=== PATIENT | male | born 1965 | race Caucasian/White ===

== ENCOUNTER 2023-09-29 12:19 | Observation (INO) ==
[2023-09-29] MEDS ORDERED: SODIUM CHLORIDE 0.9% 1,000 ML IV STA (13:10)
--- NOTE | 2023-09-29 13:13 | Emergency Department Note ---
Impression & Plan Amaurosis fugax of right eye, Peripheral artery disease, Right carotid artery occlusion ED Provider Note NAME: ÁNGEL DICKEY AGE: 58 SEX: M ARRIVES VIA: Walk-In INFORMANT: Patient ED PROVIDER(S): Yinka Betancourt MD CHIEF COMPLAINT: Intermittent vision changes, referred PLAN: Disposition: Admit MEDICAL DECISION MAKING: The patient is a pleasant 58-year-old gentleman with a past medical history of occlusive peripheral arterial disease per his description with history of left lower extremity bypass, hypertension, hyperlipidemia who presents to the emergency department via walk-in accompanied by family for evaluation of intermittent vision loss and blurring over the past week in his right eye where he reports having episodes of complete loss of vision interspersed with episodes of severe blurred vision which will last several hours and then go away. He reports he has had intermittent headaches during this past week as well but do not necessarily correlate when his vision complaints are occurring. He reports he was seen by his primary care doctor yesterday who urged him to come to the hospital and so he presents for evaluation today. The patient is not on anticoagulation but is on 650 mg of aspirin daily and 100 mg of Cilostazol. The patient denies any chest pain, back pain, shortness of breath. Denies any dizziness. He denies any trouble speaking, difficulty with coordination or extremity weakness. The patient does admit to drinking alcohol daily but reports this is only 1-2 drinks of [place] and never more than this and he has recently gone over week without drinking alcohol and did not have any symptoms of withdrawal. On my evaluation the patient is no acute distress, afebrile stable vital signs. He appears clinically dry. At this time he has no vision complaints and otherwise does not exhibit any focal deficits. EKG without overt acute ischemia. Chest x-ray negative for acute cardiopulmonary process per my preliminary interpretation WBC, H/H and platelets within normal limits. Chemistry without metabolic acidosis. Electrolytes LFTs unremarkable. High-sensitivity troponin 4.0, within normal limits. Lipase is not elevated. TSH within limits of medical alcohol was undetectable. CT of the head demonstrates a 7 mm hypodense focus within the right basal ganglia/internal capsule which may reflect prominent prevascular space or old infarct. Additional note and CT angiography demonstrates complete thrombosis of the right ICA which extends from the bifurcation to the skull base where note is made of faint reconstitution of flow within the supraclinoid and ophthalmic segments of the right ICA due to retrograde flow from the [place] of [place]. The right ophthalmic artery appears perfused. Findings reviewed with the patient and family at the bedside. He does agree with plan for admission for further management. Case was d/w Dr. [facility] [place] who will evaluate the patient for admission. Triage Nursing notes reviewed and agree them. Prior/external medical records reviewed Vital Signs: reviewed Differential diagnosis: Infection, dehydration, metabolic abnormality, hypo/hyperglycemia, electrolyte disturbance, anemia, hypoxia, cardiac sources, intracerebral event, toxicologic, neurologic, as well as other pathologies. ER treatment provided: See below. Diagnostics interpreted by me: ECG: Normal sinus rhythm, 67 bpm, no ectopy, suspect early repolarization, no overt conacave down ST elevation or depression, QTc 429, QRS 86 Cardiac Monitoring: An order for continuous cardiac monitoring was placed and demonstrated Normal sinus rhythm, 67 bpm, no ectopy. Laboratory studies: See below Imaging studies: See below Consultation(s): Case was d/w Dr. [facility] [place] who will evaluate the patient for admission. HPI: The patient is a pleasant 58-year-old gentleman with a past medical history of occlusive peripheral arterial disease per his description with history of left lower extremity bypass, hypertension, hyperlipidemia who presents to the emergency department via walk-in accompanied by family for evaluation of intermittent vision loss and blurring over the past week in his right eye where he reports having episodes of complete loss of vision interspersed with episodes of severe blurred vision which will last several hours and then go away. He reports he has had intermittent headaches during this past week as well but do not necessarily correlate when his vision complaints are occurring. He reports he was seen by his primary care doctor yesterday who urged him to come to the hospital and so he presents for evaluation today. The patient is not on anticoagulation but is on 650 mg of aspirin daily and 100 mg of Cilostazol. The patient denies any chest pain, back pain, shortness of breath. Denies any dizziness. He denies any trouble speaking, difficulty with coordination or extremity weakness. The patient does admit to drinking alcohol daily but reports this is only 1-2 drinks of [place] and never more than this and he has recently gone over week without drinking alcohol and did not have any symptoms of withdrawal. ROS: See above HPI for pertinent positives & negatives. A total of 10 systems reviewed and were otherwise negative. VITALS:See Below PHYSICAL EXAMINATION: GENERAL: Awake, alert, well-appearing, in no distress HENT: Normocephalic, atraumatic. Oropharynx with dry mucous membranes and otherwise unremarkable. EYES: Normal conjunctiva. Sclera non-icteric. EOMI. No nystamgus. PEARRL. NECK: Supple. No nuchal rigidity. FROM. No JVD. RESPIRATORY: Clear to auscultation. CARDIAC: Regular rate, normal rhythm. Extremities warm and well perfused. Pulses equal. ABDOMEN: Soft, non-distended. No tenderness to palpation. No rebound or guarding. No masses. RECTAL: Deferred. MUSCULOSKELETAL: Chest examination reveals no tenderness. The back is symmetrical on inspection without obvious abnormality. There is no CVA tenderness to palpation. No joint edema. LOWER EXTREMITIES: Calves are equal size bilaterally and non-tender. No edema. No discoloration. NEURO: No focal sensory or motor deficits noted. CNII-XII grossly intact. 5/5 strength and SILT x 4 extremities. Cerebellar function intact including [id number], alternating palms, [id number]. SKIN: No rash or jaundice noted. Yinka Betancourt MD Past Med/Surg History Medical History Compartment syndrome of left lower extremity History of diverticulitis with abscess - August 2023 Peripheral artery disease b/l leg artery hooked up to aorta Surgical History History of arthroscopy of knee Social History Smoking Status: Current every day smoker Preferred Language: Icelandic Feels Safe at Home: Yes Allergies Allergies Allergy/AdvReac Type Severity Reaction Status Date / Time No Known Allergies Allergy Unverified 09/29/23 15:45 Home Meds Home Medications Medication Instructions Recorded Confirmed acetaminophen 500 mg tablet 500 mg PO Q6H PRN pain/fever 09/29/23 09/29/23 aspirin 325 mg tablet 650 mg PO DAILY 09/29/23 09/29/23 atorvastatin 40 mg tablet 40 mg PO DAILY 09/29/23 09/29/23 cilostazol 100 mg tablet 100 mg PO BID 09/29/23 09/29/23 gabapentin 100 mg capsule 100 mg PO TID 09/29/23 09/29/23 metoprolol succinate 50 mg 50 mg PO DAILY 09/29/23 09/29/23 tablet,extended release 24 hr nitroglycerin 0.3 mg sublingual 0.3 mg sublingual UD PRN Chest Pain 09/29/23 09/29/23 tablet Results & Data (ED) Vital Signs Vital Signs - 24 hr 09/29/23 12:23 09/29/23 12:38 09/29/23 12:39 Temperature 36.3 C L Temperature Source Temporal Artery Scan Pulse Rate 78 68 68 Pulse Rate from SpO2 Sensor 68 Respiratory Rate 20 12 Blood Pressure 121/81 138/78 Blood Pressure Mean 94 98 Pulse Oximetry 99 98 Oxygen Delivery Method Room Air Sepsis Recent Fever Within 48 Hours No Sepsis New/Unexplained Change in Mental Status N/A Sepsis Action Taken by Nursing No Action Required 09/29/23 13:00 09/29/23 13:10 09/29/23 13:30 Temperature Temperature Source Pulse Rate 66 67 Pulse Rate from SpO2 Sensor 67 66 Respiratory Rate 12 15 Blood Pressure Blood Pressure Mean Pulse Oximetry 100 98 100 Oxygen Delivery Method Room Air Sepsis Recent Fever Within 48 Hours Sepsis New/Unexplained Change in Mental Status Sepsis Action Taken by Nursing 09/29/23 14:00 09/29/23 14:30 09/29/23 15:07 Temperature Temperature Source Pulse Rate 64 59 L 62 Pulse Rate from SpO2 Sensor Respiratory Rate 14 22 14 Blood Pressure Blood Pressure Mean Pulse Oximetry Oxygen Delivery Method Sepsis Recent Fever Within 48 Hours Sepsis New/Unexplained Change in Mental Status Sepsis Action Taken by Nursing 09/29/23 15:30 09/29/23 16:00 09/29/23 16:03 Temperature Temperature Source Pulse Rate 63 59 L 61 Pulse Rate from SpO2 Sensor Respiratory Rate 16 23 16 Blood Pressure Blood Pressure Mean Pulse Oximetry Oxygen Delivery Method Sepsis Recent Fever Within 48 Hours Sepsis New/Unexplained Change in Mental Status Sepsis Action Taken by Nursing 09/29/23 16:11 09/29/23 16:24 09/29/23 16:30 Temperature Temperature Source Pulse Rate 54 L 56 L Pulse Rate from SpO2 Sensor Respiratory Rate 12 Blood Pressure 152/79 H Blood Pressure Mean 109 Pulse Oximetry Oxygen Delivery Method Sepsis Recent Fever Within 48 Hours Sepsis New/Unexplained Change in Mental Status Sepsis Action Taken by Nursing 09/29/23 17:00 09/29/23 17:30 Temperature Temperature Source Pulse Rate 59 L 56 L Pulse Rate from SpO2 Sensor Respiratory Rate 20 15 Blood Pressure Blood Pressure Mean Pulse Oximetry Oxygen Delivery Method Sepsis Recent Fever Within 48 Hours Sepsis New/Unexplained Change in Mental Status Sepsis Action Taken by Nursing Laboratory Data Attestation: I reviewed the patient's lab results. 09/29/23 12:45 09/29/23 12:45 Lab Results 09/29/23 09/29/23 Range/Units 12:45 14:40 WBC 8.66 (4.8-10.8) K/ul RBC 4.59 L (4.70-6.10) M/uL Hgb 14.4 (14.0-18.0) g/dl Hct 43.6 (42.0-52.0) % MCV 95.0 (80.0-100.0) fL MCH 31.4 (25.0-34.0) pg MCHC 33.0 (32.0-36.0) g/dL RDW Std Deviation 47.6 H (36.4-46.3) fL RDW Coeff of Adonis 13.5 (11.5-14.5) % Plt Count 228 (130-400) K/uL MPV 10.2 (9.4-12.4) fL Immature Gran % (Auto) 0.3 % Neut % (Auto) 75.3 % Lymph % (Auto) 16.9 % [place] % (Auto) 6.5 % Eos % (Auto) 0.7 % Baso % (Auto) 0.3 % Neut # (Auto) 6.52 H (1.40-6.50) K/uL Lymph # (Auto) 1.46 (1.20-3.40) K/uL [place] # (Auto) 0.56 (0.11-0.59) K/uL Eos # (Auto) 0.06 (0.00-0.50) K/uL Baso # (Auto) 0.03 (0.00-0.20) K/uL Immature Gran # (Auto) 0.03 (0.01-0.20) K/uL ESR 46 H (0-20) mm/hr Sodium 140 (136-145) mmol/L Potassium 4.0 (3.5-5.1) mmol/L Chloride 107 (98-107) mmol/L Carbon Dioxide 28 (21-32) mmol/L Anion Gap 5 (3-11) BUN 15 (6-23) mg/dl Creatinine 0.87 (0.6-1.4) mg/dl Est Cr Clr Drug Dosing 93.2 ml/min Est GFR ( Amer) 108.7 ml/min Est GFR (Non-Af Amer) 93.8 ml/min BUN/Creatinine Ratio 17.2 (10-20) Glucose 91 (70-99(Fasting)) mg/dl Calcium 9.5 (8.6-10.3) mg/dl Phosphorus 2.5 (2.5-4.9) mg/dl Magnesium 2.1 (1.7-2.4) mg/dl Total Bilirubin 0.5 (0.2-1.0) mg/dl AST 13 (13-39) U/L ALT 7 (7-52) U/L Alkaline Phosphatase 81 (34-104) U/L Troponin I High Sens 4.0 (0-20) pg/ml C-Reactive Protein 6.50 H (0-0.5) mg/dl Total Protein 7.4 (6.0-8.3) gm/dl Albumin 4.1 (3.4-5.0) gm/dl Globulin 3.3 (2.5-4.0) gm/dl Albumin/Globulin Ratio 1.2 (0.9-2) Lipase 17 (11-82) U/L TSH 2.742 (0.300-4.500) uIu/ml Ethyl Alcohol mg/dL < 10.0 (<10.0) mg/dl Administered Medications Discontinued Medications Sodium Chloride (Nss) 1,000 mls @ 999 mls/hr IV .Q1H1M STA Stop: 09/29/23 14:10 Last Infusion: 09/29/23 14:42 Dose: Infused Documented By: Admin: 09/29/23 13:21 Dose: 999 mls/hr Documented By: ACC Ioversol (Optiray 320 125ml) 117 ml IV ONCE ONE Stop: 09/29/23 15:22 Last Admin: 09/29/23 15:11 Dose: 117 ml Documented By: Imaging Data Radiologist's Impression: Chest X-Ray 09/29/23 13:10 XR chest 1V portable CLINICAL HISTORY: Chest pain, nonspecific. COMPARISON STUDY: No previous studies for comparison. FINDINGS: Lung volumes are normal. Lungs are clear. There is no pneumothorax or pleural effusion. Cardiac size is normal. Mediastinal contours are normal. There is no evidence for pulmonary edema. A 5 mm metallic density projects over the right midlung. IMPRESSION: No acute cardiopulmonary findings. ACT 112: Negative or not required by law. Electronically signed by: Bharathi Montana M.D. 09/29/2023 1:[address] 09/29/23 13:10 CT OF THE HEAD WITHOUT CONTRAST CLINICAL HISTORY: intermittent right eye vision loss. COMPARISON STUDY: No previous studies for comparison. CT DOSE: 1245.22 mGy.cm TECHNIQUE: Helical axial images of the head were obtained without IV contrast. Automated exposure control was utilized for the study. A dose lowering technique was utilized adhering to the principles of ALARA. FINDINGS: No acute intracranial hemorrhage, midline shift or mass effect is present. A 7 mm hypodense focus within the right basal ganglia/internal capsule is present. The ventricular system is unremarkable. The basal cisterns are patent. No extra-axial collections are present. There are no findings to suggest acute dural sinus thrombosis or acute territorial infarct. No significant calvarial abnormalities are present. Visualized portions of the sinuses and mastoid air cells are clear. IMPRESSION: 1. No acute intracranial findings. 2. 7 mm hypodense focus within the right basal ganglia/internal capsule which could reflect a prominent prevascular space or old infarct. ACT 112: Negative or not required by law. Electronically signed by: Bharathi Montana M.D. 09/29/2023 3:23 PM Head CTA 09/29/23 13:10 HEAD CTA HISTORY: intermittent right eye vision loss. TECHNIQUE: Multiaxial CT images of the head were performed following the intravenous administration of contrast to evaluate the major cerebral vessels. 3D/MIP images were also obtained. Sagittal and coronal reformats were reviewed. A dose lowering technique was utilized adhering to the principles of ALARA. COMPARISON: Noncontrast head CT 09/29/2023. FINDINGS: The visualized left intracranial internal carotid artery is patent. The majority of the right intracranial internal carotid artery is occluded. There is faint reconstitution of flow within the supraclinoid and ophthalmic segments of the right ICA likely due to retrograde flow from the [place] of [place]. The right ophthalmic artery appears perfused. There is a hypoplastic right A1 segment. Otherwise, the bilateral ACAs and MCAs show no significant stenosis, occlusion, or aneurysm. The distal vertebral arteries and basilar artery are patent. Normal left PHLEBOTOMY SERVICES TECHNICIAN. Hypoplastic proximal to mid right PHLEBOTOMY SERVICES TECHNICIAN which demonstrates partial circulation. The distal right PHLEBOTOMY SERVICES TECHNICIAN appears normal in caliber and is patent. The major dural venous sinuses appear patent. IMPRESSION: 1. The majority of the right intracranial internal carotid artery is occluded. There is faint reconstitution of flow within the supraclinoid and ophthalmic segments of the right ICA likely due to retrograde flow from the [place] of [place]. The right ophthalmic artery appears perfused. 2. Hypoplastic proximal to mid right PHLEBOTOMY SERVICES TECHNICIAN which demonstrates partial circulation. The distal right PHLEBOTOMY SERVICES TECHNICIAN appears normal in caliber and is patent. ACT 112: Negative or not required by law. Electronically signed by: Azam Saravia M.D. 09/29/2023 3:46 PM Neck CTA 09/29/23 13:10 CT ANGIOGRAM OF THE NECK CLINICAL HISTORY: Amaurosis fugax on the right COMPARISON STUDY: No priors. TECHNIQUE: Following the IV administration of 117 of Optiray 320, CT angiogram of the neck was performed from the aortic arch to the skull base. Images are reviewed in the axial, sagittal, and coronal planes. 3-D MIPS images are created and assessed. IV contrast was administered without complication. All measurements were calculated based on NASCET criteria. A dose lowering technique was utilized adhering to the principles of ALARA. FINDINGS: Thoracic aorta: There is atherosclerotic calcification of the thoracic aorta. Visualized portions of the thoracic aorta are normal in caliber. The aortic arch demonstrates standard 3-vessel anatomy. Right carotid arterial system: The right common carotid artery is widely patent. There is complete thrombosis of the right internal carotid artery. This extends to the bifurcation to the skull base. The external carotid artery is patent. Left carotid arterial system: The left common carotid artery is widely patent, as are the left internal and external carotid arteries. Calcified plaque is noted in the carotid bulb. Vertebral arteries: The vertebral arteries are widely patent bilaterally and codominant. Subclavian arteries: Widely patent bilaterally. Intracranial vasculature: There is complete thrombosis of the right internal carotid artery to skull base. The remaining visualized intracranial vessels at the skull base appear patent. Jugular veins: Widely patent bilaterally. Brain parenchyma: The visualized brain parenchyma the skull base is within normal limits. Lung apices: Emphysematous change is noted. The upper lobe lung parenchyma is otherwise clear as imaged. Soft tissues: The visualized pharyngeal soft tissues are normal in appearance noting angiographic phase technique. The oropharyngeal airway appears widely patent. The salivary and thyroid glands are normal in appearance. No cervical lymphadenopathy is seen. Skeletal structures: The visualized calvarium at the skull base appears intact. The imaged cervical spine is maintained noting multilevel spondylosis. Sinuses and mastoids: The visualized paranasal sinuses are clear. The mastoid air cells are well pneumatized. IMPRESSION: 1. There is complete and age indeterminant thrombosis of the right internal carotid artery. This extends from the bifurcation to the skull base. 2. The left internal carotid artery and the bilateral vertebral arteries are patent. 3. Emphysema. 4. Additional findings as above. ACT 112: Negative or not required by law. Electronically signed by: Adam Gasca M.D. 09/29/2023 3:28 PM Brain MRI 09/29/23 16:48 MRI OF THE BRAIN WITHOUT CONTRAST CLINICAL HISTORY: right eye intermittent vision loss COMPARISON STUDY: Head CT and CTA of the head performed earlier today. TECHNIQUE: Utilizing a 1.5 [place] magnet and dedicated coil, multiplanar, multiecho imaging of the brain was performed without IV contrast. FINDINGS: There is a 5 mm focus of restricted diffusion within the right temporal lobe, deep to the insular cortex. No additional foci of acute infarction are identified. A 6 mm old infarct within the right internal capsule corresponds to the finding on head CT performed earlier today. There is no mass effect. There is no acute hemorrhage. Ventricular system is unremarkable. Basal cisterns are patent. No intracranial masses are identified on this unenhanced exam. Scattered white matter T2 hyperintense foci suggest mild small vessel disease. Loss of the flow-void for the majority of the right internal carotid artery is partially imaged on this exam. There is reconstitution within the supraclinoid segment, as shown on CTA. Intraluminal material is T1 and T2 hyperintense. IMPRESSION: 1. Small 5 mm acute infarct within the right temporal lobe, as described above. No acute hemorrhage. No mass effect. 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 2. Occlusion of the majority of the right internal carotid artery with reconstitution, better depicted on CTA performed earlier today. This is age indeterminate however the intraluminal signal characteristics raise the possibility of acute to subacute occlusion. ACT 112: Negative or not required by law. Electronically signed by: Bharathi Montana M.D. 09/29/2023 6:43 PM Discharge Plan Visit Data Chief Complaint: TIA Symptoms Stated Complaint: POSS STROKE ED Provider: Yinka Betancourt Discharge Problem: Amaurosis fugax of right eye, Peripheral artery disease, Right carotid artery occlusion Discharge Instructions Interventions: ED Discharge Assessment Last Done: 09/29/23 20:02
[2023-09-29 13:26] LABS: Basophils # (auto) 0.03 K/uL (0.00-0.20); Basophils % (auto) 0.3 %; Eosinophils # (auto) 0.06 K/uL (0.00-0.50); Eosinophils % (auto) 0.7 %; Hematocrit (blood only) 43.6 % (42.0-52.0); Hemoglobin 14.4 g/dl (14.0-18.0); Immature Granulocytes # (auto) 0.03 K/uL (0.01-0.20); Immature Granulocytes % (auto) 0.3 %; Lymphocytes # (auto) 1.46 K/uL (1.20-3.40); Lymphocytes % (auto) 16.9 %; Mean Corpuscular Hemoglobin 31.4 pg (25.0-34.0); Mean Platelet Volume 10.2 fL (9.4-12.4); Monocytes # (auto) 0.56 K/uL (0.11-0.59); Monocytes % (auto) 6.5 %; Neutrophils # (auto) 6.52 K/uL (1.40-6.50); Neutrophils % (auto) 75.3 %; Platelet Count 228 K/uL (130-400); RDW Coefficient of Variation 13.5 % (11.5-14.5); RDW Standard Deviation 47.6 fL (36.4-46.3); Red Blood Count 4.59 M/uL (4.70-6.10); White Blood Count 8.66 K/ul (4.8-10.8)
--- NOTE | 2023-09-29 13:31 | XRay Report ---
XR chest 1V portable CLINICAL HISTORY: Chest pain, nonspecific. COMPARISON STUDY: No previous studies for comparison. FINDINGS: Lung volumes are normal. Lungs are clear. There is no pneumothorax or pleural effusion. Car diac size is normal. Mediastinal contours are normal. There is no evidence for pulmonary edema. A 5 m m metallic density projects over the right midlung. IMPRESSION: No acute cardiopulmonary findings. ACT 112: Negative or not required by law. Electronically signed by: Bharathi Montana M.D. 09/29/2023 1:30 PM
[2023-09-29 13:35] LABS: Albumin Globulin Ratio 1.2 (0.9-2); Albumin Level 4.1 gm/dl (3.4-5.0); BUN Creatinine Ratio 17.2 (10-20); Bilirubin,Total 0.5 mg/dl (0.2-1.0); Calcium 9.5 mg/dl (8.6-10.3); Creatinine Clr Calc Pharmacy 93.2 ml/min; Est GFR (African American) 108.7 ml/min; Est GFR (Non-African American) 93.8 ml/min; Globulin 3.3 gm/dl (2.5-4.0); Magnesium 2.1 mg/dl (1.7-2.4); Phosphorus 2.5 mg/dl (2.5-4.9); Total Protein 7.4 gm/dl (6.0-8.3)
[2023-09-29 13:45] LABS: Thyroid Stimulating Hormone 2.742 uIu/ml (0.300-4.500)
--- NOTE | 2023-09-29 13:55 | Electrocardiogram Report ---
Test Reason : Blood Pressure : / mmHG Vent. Rate : 067 BPM Atrial Rate : 067 BPM P-R Int : 176 ms QRS Dur : 086 ms QT Int : 406 ms P-R-T Axes : 049 078 070 degrees QTc Int : 429 ms Normal sinus rhythm Minor ST elevation, most consistent with repolarization variant Borderline ECG When compared with ECG of 07-JUL-2000 12:48, No significant change Confirmed by Michael Oro ([id number]) on 09/29/2023 1:54:43 PM Referred By: Confirmed By:Michael Oro
[2023-09-29] MEDS ORDERED: OPTIRAY 320 125ml IV ONE (15:21)
--- NOTE | 2023-09-29 15:24 | CT Scan Report ---
CT OF THE HEAD WITHOUT CONTRAST CLINICAL HISTORY: intermittent right eye vision loss. COMPARISON STUDY: No previous studies for comparison. CT DOSE: 1245.22 mGy.cm TECHNIQUE: Helical axial images of the head were obtained without IV contrast. Automated exposure con trol was utilized for the study. A dose lowering technique was utilized adhering to the principles o f ALARA. FINDINGS: No acute intracranial hemorrhage, midline shift or mass effect is present. A 7 mm hypodense focus within the right basal ganglia/internal capsule is present. The ventricular system is unremark able. The basal cisterns are patent. No extra-axial collections are present. There are no findings to suggest acute dural sinus thrombosis or acute territorial infarct. No significant calvarial abnormal ities are present. Visualized portions of the sinuses and mastoid air cells are clear. IMPRESSION: 1. No acute intracranial findings. 2. 7 mm hypodense focus within the right basal ganglia/internal capsule which could reflect a promine nt prevascular space or old infarct. ACT 112: Negative or not required by law. Electronically signed by: Bharathi Montana M.D. 09/29/2023 3:23 PM
--- NOTE | 2023-09-29 15:31 | CT Scan Report ---
CT ANGIOGRAM OF THE NECK CLINICAL HISTORY: Amaurosis fugax on the right COMPARISON STUDY: No priors. TECHNIQUE: Following the IV administration of 117 of Optiray 320, CT angiogram of the neck was perfor med from the aortic arch to the skull base. Images are reviewed in the axial, sagittal, and coronal p lanes. 3-D MIPS images are created and assessed. IV contrast was administered without complication. A ll measurements were calculated based on NASCET criteria. A dose lowering technique was utilized adh ering to the principles of ALARA. FINDINGS: Thoracic aorta: There is atherosclerotic calcification of the thoracic aorta. Visualized portions of the thoracic aorta are normal in caliber. The aortic arch demonstrates standard 3-vessel anatomy. Right carotid arterial system: The right common carotid artery is widely patent. There is complete th rombosis of the right internal carotid artery. This extends to the bifurcation to the skull base. The external carotid artery is patent. Left carotid arterial system: The left common carotid artery is widely patent, as are the left journalism internship al and external carotid arteries. Calcified plaque is noted in the carotid bulb. Vertebral arteries: The vertebral arteries are widely patent bilaterally and codominant. Subclavian arteries: Widely patent bilaterally. Intracranial vasculature: There is complete thrombosis of the right internal carotid artery to skull base. The remaining visualized intracranial vessels at the skull base appear patent. Jugular veins: Widely patent bilaterally. Brain parenchyma: The visualized brain parenchyma the skull base is within normal limits. Lung apices: Emphysematous change is noted. The upper lobe lung parenchyma is otherwise clear as imag ed. Soft tissues: The visualized pharyngeal soft tissues are normal in appearance noting angiographic pha se technique. The oropharyngeal airway appears widely patent. The salivary and thyroid glands are nor mal in appearance. No cervical lymphadenopathy is seen. Skeletal structures: The visualized calvarium at the skull base appears intact. The imaged cervical s pine is maintained noting multilevel spondylosis. Sinuses and mastoids: The visualized paranasal sinuses are clear. The mastoid air cells are well pneu matized. IMPRESSION: 1. There is complete and age indeterminant thrombosis of the right internal carotid artery. This exte nds from the bifurcation to the skull base. 2. The left internal carotid artery and the bilateral vertebral arteries are patent. 3. Emphysema. 4. Additional findings as above. ACT 112: Negative or not required by law. Electronically signed by: Adam Gasca M.D. 09/29/2023 3:28 PM
--- NOTE | 2023-09-29 15:47 | CT Scan Report ---
HEAD CTA HISTORY: intermittent right eye vision loss. TECHNIQUE: Multiaxial CT images of the head were performed following the intravenous administration o f contrast to evaluate the major cerebral vessels. 3D/MIP images were also obtained. Sagittal and co katarzyna reformats were reviewed. A dose lowering technique was utilized adhering to the principles of A FARHEEN. COMPARISON: Noncontrast head CT 09/29/2023. FINDINGS: The visualized left intracranial internal carotid artery is patent. The majority of the rig ht intracranial internal carotid artery is occluded. There is faint reconstitution of flow within the supraclinoid and ophthalmic segments of the right ICA likely due to retrograde flow from the [place]. The right ophthalmic artery appears perfused. There is a hypoplastic right A1 segment. Oth erwise, the bilateral ACAs and MCAs show no significant stenosis, occlusion, or aneurysm. The distal vertebral arteries and basilar artery are patent. Normal left APPRAISER ART. Hypoplastic proximal to mid right APPRAISER ART which demonstrates partial circulation. The distal right APPRAISER ART appears normal in caliber and is patent. The major dural venous sinuses appear patent. IMPRESSION: 1. The majority of the right intracranial internal carotid artery is occluded. There is faint reconst itution of flow within the supraclinoid and ophthalmic segments of the right ICA likely due to retrog rade flow from the [place]. The right ophthalmic artery appears perfused. 2. Hypoplastic proximal to mid right APPRAISER ART which demonstrates partial circulation. The distal rig ht APPRAISER ART appears normal in caliber and is patent. ACT 112: Negative or not required by law. Electronically signed by: Azam Saravia M.D. 09/29/2023 3:46 PM
[2023-09-29 17:12] LABS: C Reactive Protein 6.5 mg/dl (0-0.5)
--- NOTE | 2023-09-29 17:36 | History & Physical Report ---
Date of Service September 29, 2023 Assessment & Plan (1) Stroke-like symptoms: Plan: Intermittent right sided vision loss. Currently without any symptoms. In setting of right sided complete and age indeterminant thrombosis of the internal carotid artery concerning for CVA/TIA. Brain MRI wo contrast Continue aspirin and Pletal - will defer to neurology pending results of brain MRI to determine need for third antiplatelet vs. switching Pletal for clopidogrel Consult vascular surgery if acute CVA present TTE Monitor on telemetry for arrhythmia HbA1C and lipid panel with AM labs (2) Peripheral artery disease: Plan: Continue aspirin and Pletal Under vascular surgery in [place] with prior bypass to both legs (3) Right carotid artery occlusion: Plan VTE Prophylaxis - deferred pending further workup Diet - heart healthy Disposition - observation to med/tele Admission and Anticipated Discharge Date Admission Date: September 29, 2023 History of Present Illness Chief Complaint: Right eye vision loss Primary Care Provider: VENITA Mancilla Robert Stewart is a 58 year old male who presents to the ER with intermittent right eye vision loss. He reports no current problems with his vision, speech, hearing, extremity weakness or numbness. He notes the vision loss is his right eye rather than right sided vision. Occurs intermittently several times over the past week in his right eye where he reports having episodes of complete loss of vision interspersed with episodes of severe blurred vision which will last sev eral hours and completely resolve. He was advised to come to the ER by his PCP. No prior history of strokes or [place]. Associated headache with vision loss - not temporal, occurs at the back right side, non pulsating, none currently. He has the majority of his care in [facility] and records not available on admission. He reports his only ongoing medical condition is peripheral artery disease with history of occlusion requiring bilateral extremity bypass with complications of left compartment syndrome requiring fasciotomy. Previously under Dr López but now sees various vascular surgeons at [facility]. He has a non-healing ulcer on his left 5th toe although he notes this has been improving. Prior toe amputations on this side was as a 3 year old after a mowing accident and not due to PAD. Allergies Allergy/AdvReac Type Severity Reaction Status Date / Time No Known Allergies Allergy Unverified 09/29/23 15:45 Home Medications Medication Instructions Recorded Confirmed Type acetaminophen 500 mg tablet 500 mg PO Q6H PRN pain/fever 09/29/23 09/29/23 History aspirin 325 mg tablet 650 mg PO DAILY 09/29/23 09/29/23 History atorvastatin 40 mg tablet 40 mg PO DAILY 09/29/23 09/29/23 History cilostazol 100 mg tablet 100 mg PO BID 09/29/23 09/29/23 History gabapentin 100 mg capsule 100 mg PO TID 09/29/23 09/29/23 History metoprolol succinate 50 mg 50 mg PO DAILY 09/29/23 09/29/23 History tablet,extended release 24 hr nitroglycerin 0.3 mg sublingual 0.3 mg sublingual UD PRN Chest Pain 09/29/23 09/29/23 History tablet Past Med/Surg History Medical History Compartment syndrome of left lower extremity History of diverticulitis with abscess - August 2023 Peripheral artery disease b/l leg artery hooked up to aorta Surgical History History of arthroscopy of knee Social History Smoking Status: Current every day smoker Preferred Language: [place] Production [employer]ator Required: No Current Living Situation: Significant Other Other Information That Helps Us Care for You: No Feels Safe at Home: Yes Safety Concerns: Feels Safe At This Time Assistive Devices: Glasses and Hearing Aid - Bilateral Review of Systems Review of Systems: All systems reviewed & are unremarkable except as noted in HPI & below On review of systems he notes recent history of chest pains intermittently in August. Went ot ER on September 21 and has had none since then. 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 Physical Exam Constitutional: WD/WN, vitals as above Eyes: normal visual porter by confrontation, PERRL and EOM intact bilaterally; no conjunctival abnormality ENMT: external ear and nose normal, oropharynx normal Respiratory: normal respiratory effort, lungs clear to auscultation Cardiovascular: RRR, no murmur, no edema Vessels: posterior tibial pulses present and dorsalis pedis pulses present Gastrointestinal (Abdomen): normal bowel sounds, soft, nontender, no hepatosplenomegaly Skin: amputation on 4th-5th toes left foot with chronic appearing ulcer on 5th tip with no surrounding cellutliuis Neurologic: moves all extremities and awake; no focal motor deficits and not confused Speech / Cognition: normal speech Motor/Sensory: no tremor, normal movement, no pronator drift and no sensory deficit Cranial Nerves: sense of smell intact, PERRL, normal accommodation, EOM intact bilaterally, no rmal facial strength, tongue midline, able to rotate head bilaterally, able to elevate shoulders bilaterally, no nystagmus and symmetric palate elevation Coordination: normal [id number] test Psychiatric: A+Ox3, euthymic affect Results & Data Results & Data Vital Signs (Past 12 Hours) Vital Signs Temp Pulse Resp BP Pulse Ox O2 Del Method 09/29/23 16:24 54 L 09/29/23 13:10 98 Room Air 09/29/23 13:00 66 12 100 09/29/23 12:39 68 09/29/23 12:38 68 12 138/78 98 09/29/23 12:23 36.3 C L 78 20 121/81 99 Room Air Laboratory Results Abnormal lab results 09/29/23 Range/Units 12:45 RBC 4.59 L (4.70-6.10) M/uL RDW Std Deviation 47.6 H (36.4-46.3) fL Neut # (Auto) 6.52 H (1.40-6.50) K/uL ESR 46 H (0-20) mm/hr C-Reactive Protein 6.50 H (0-0.5) mg/dl Diagnostic Findings XR chest 1V portable CLINICAL HISTORY: Chest pain, nonspecific. COMPARISON STUDY: No previous studies for comparison. FINDINGS: Lung volumes are normal. Lungs are clear. There is no pneumothorax or pleural effusion. Cardiac size is normal. Mediastinal contours are normal. There is no evidence for pulmonary edema. A 5 mm metallic density projects over the right midlung. IMPRESSION: No acute cardiopulmonary findings. CT OF THE HEAD WITHOUT CONTRAST CLINICAL HISTORY: intermittent right eye vision loss. COMPARISON STUDY: No previous studies for comparison. CT DOSE: 1245.22 mGy.cm TECHNIQUE: Helical axial images of the head were obtained without IV contrast. Automated exposure control was utilized for the study. A dose lowering technique was utilized adhering to the principles of ALARA. FINDINGS: No acute intracranial hemorrhage, midline shift or mass effect is present. A 7 mm hypodense focus within the right basal ganglia/internal capsule is present. The ventricular system is unremarkable. The basal cisterns are patent. No extra-axial collections are present. There are no findings to suggest acute dural sinus thrombosis or acute territorial infarct. No significant calvarial abnormalities are present. Visualized portions of the sinuses and mastoid air cells are clear. IMPRESSION: 1. No acute intracranial findings. 2. 7 mm hypodense focus within the right basal ganglia/internal capsule which could reflect a prominent prevascular space or old infarct. HEAD CTA HISTORY: intermittent right eye vision loss. TECHNIQUE: Multiaxial CT images of the head were performed following the intravenous administration of contrast to evaluate the major cerebral vessels. 3D/MIP images were also obtained. Sagittal and coronal reformats were reviewed. A dose lowering technique was utilized adhering to the principles of ALARA. COMPARISON: Noncontrast head CT 09/29/2023. FINDINGS: The visualized left intracranial internal carotid artery is patent. The majority of the right intracranial internal carotid artery is occluded. There is faint reconstitution of flow within the supraclinoid and ophthalmic segments of the right ICA likely due to retrograde flow from the [place]. The right ophthalmic artery appears perfused. There is a hypoplastic right A1 segment. Otherwise, the bilateral ACAs and MCAs show no significant stenosis, occlusion, or aneurysm. The distal vertebral arteries and basilar artery are patent. Normal left DIRECTOR DESIGN. Hypoplastic proximal to mid right DIRECTOR DESIGN which demonstrates partial circulation. The distal right DIRECTOR DESIGN appears normal in caliber and is patent. The major dural venous sinuses appear patent. IMPRESSION: 1. The majority of the right intracranial internal carotid artery is occluded. There is faint reconstitution of flow within the supraclinoid and ophthalmic segments of the right ICA likely due to retrograde flow from the [place]. The right ophthalmic artery appears perfused. 2. Hypoplastic proximal to mid right DIRECTOR DESIGN which demonstrates partial circulation. The distal right DIRECTOR DESIGN appears normal in caliber and is patent. CT ANGIOGRAM OF THE NECK CLINICAL HISTORY: Amaurosis fugax on the right COMPARISON STUDY: No priors. TECHNIQUE: Following the IV administration of 117 of Optiray 320, CT angiogram of the neck was performed from the aortic arch to the skull base. Images are reviewed in the axial, sagittal, and coronal planes. 3-D MIPS images are created and assessed. IV contrast was administered without complication. All measurements were calculated based on NASCET criteria. A dose lowering technique was utilized adhering to the principles of ALARA. FINDINGS: Thoracic aorta: There is atherosclerotic calcification of the thoracic aorta. Visualized portions of the thoracic aorta are normal in caliber. The aortic arch demonstrates standard 3-vessel anatomy. Right carotid arterial system: The right common carotid artery is widely patent. There is complete thrombosis of the right internal carotid artery. This extends to the bifurcation to the skull base. The external carotid artery is patent. Left carotid arterial system: The left common carotid artery is widely patent, as are the left internal and external carotid arteries. Calcified plaque is noted in the carotid bulb. Vertebral arteries: The vertebral arteries are widely patent bilaterally and codominant. Subclavian arteries: Widely patent bilaterally. Intracranial vasculature: There is complete thrombosis of the right internal carotid artery to skull base. The remaining visualized intracranial vessels at the skull base appear patent. Jugular veins: Widely patent bilaterally. Brain parenchyma: The visualized brain parenchyma the skull base is within normal limits. Lung apices: Emphysematous change is noted. The upper lobe lung parenchyma is otherwise clear as imaged. Soft tissues: The visualized pharyngeal soft tissues are normal in appearance noting angiographic phase technique. The oropharyngeal airway appears widely patent. The salivary and thyroid glands are normal in appearance. No cervical lymphadenopathy is seen. Skeletal structures: The visualized calvarium at the skull base appears intact. The imaged cervical spine is maintained noting multilevel spondylosis. Sinuses and mastoids: The visualized paranasal sinuses are clear. The mastoid air cells are well pneumatized. IMPRESSION: 1. There is complete and age indeterminant thrombosis of the right internal carotid artery. This extends from the bifurcation to the skull base. 2. The left internal carotid artery and the bilateral vertebral arteries are patent. 3. Emphysema. 4. Additional findings as above. Medications Administered ER Medications Given: Normal saline 1L bolus ECG Rate (beats per minute): 67 Rhythm: normal sinus Findings: + other (Minor ST elevation, most consistent with repolarization variant); no acute ischemic change Comparison ECG Date: from (Jul 07, 2000) Change: no significant change Code Status & VTE Plan Code Status DNR/DNI per patient wishes VTE Prophylaxis Plan VTE Prophylaxis will be ordered: No PG Care Time/CCT Total # of Minutes Spent Total Time Spent with Patient: Total time spent is greater than 50% in coordination of care (as documented) at patient's floor/unit and/or counseling patient: Coding Level of Care Code 03925 INT INP/OBS CARE MIN Diagnoses Stroke-like symptoms R29.90 Peripheral artery disease I73.9 Right carotid artery occlusion I65.21
--- NOTE | 2023-09-29 18:46 | Magnetic Resonance Report ---
MRI OF THE BRAIN WITHOUT CONTRAST CLINICAL HISTORY: right eye intermittent vision loss COMPARISON STUDY: Head CT and CTA of the head performed earlier today. TECHNIQUE: Utilizing a 1.5 [place] magnet and dedicated coil, multiplanar, multiecho imaging of the bra in was performed without IV contrast. FINDINGS: There is a 5 mm focus of restricted diffusion within the right temporal lobe, deep to the i nsular cortex. No additional foci of acute infarction are identified. A 6 mm old infarct within the r ight internal capsule corresponds to the finding on head CT performed earlier today. There is no mass effect. There is no acute hemorrhage. Ventricular system is unremarkable. Basal cisterns are patent. No intracranial masses are identified on this unenhanced exam. Scattered white matter T2 hyperintens e foci suggest mild small vessel disease. Loss of the flow-void for the majority of the right interna l carotid artery is partially imaged on this exam. There is reconstitution within the supraclinoid se gment, as shown on CTA. Intraluminal material is T1 and T2 hyperintense. IMPRESSION: 1. Small 5 mm acute infarct within the right temporal lobe, as described above. No acute hemorrhage. No mass effect. 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 2. Occlusion of the majority of the right internal carotid artery with reconstitution, better depicte d on CTA performed earlier today. This is age indeterminate however the intraluminal signal character istics raise the possibility of acute to subacute occlusion. ACT 112: Negative or not required by law. Electronically signed by: Bharathi Montana M.D. 09/29/2023 6:43 PM
[2023-09-29] MEDS ORDERED: ACETAMINOPHEN 500 MG TAB PO PRN (20:01)
[2023-09-29 21:31] LABS: Appearance Urine Clear (Clear); Bacteria Urine Automated Negative (Negative); Bilirubin Urine Negative (Negative); Blood Urine Negative (Negative); Color Urine Yellow; Epithelial Cell Urine Auto 0-5 /lpf (0-5); Glucose Urine UA Negative (Negative); Ketones Urine Negative (Negative); Leukocyte Esterase Urine 2+ (Negative); Nitrite Urine Positive (Negative); Protein Urine Negative (Negative); RBC Urine Automated 0-4 /hpf (0-4); Specific Gravity Urine 1.044 (1.000-1.030); Urobilinogen Urine Negative (Negative); WBC Urine Automated >30 /hpf (0-5)
[2023-09-29] MEDS ORDERED: PHARMACIST DISCHARGE MED REC CONSULT PRN (21:36)
[2023-09-29] MEDS: LACTATED RINGER'S 1,000 ML IV SCH (22:11)
[2023-09-29] MEDS: cilostazoL 100 MG TAB PO SCH (23:39)
[2023-09-29] MEDS: GABAPENTIN 100 MG CAP PO SCH (23:39)
[2023-09-30 05:11] LABS: Basophils # (auto) 0.05 K/uL (0.00-0.20); Basophils % (auto) 0.6 %; Eosinophils % (auto) 1.1 %; Hematocrit (blood only) 40.2 % (42.0-52.0); Hemoglobin 13.1 g/dl (14.0-18.0); Immature Granulocytes # (auto) 0.03 K/uL (0.01-0.20); Immature Granulocytes % (auto) 0.3 %; Lymphocytes # (auto) 1.55 K/uL (1.20-3.40); Lymphocytes % (auto) 17.7 %; Mean Corpuscular Hemoglobin 31.3 pg (25.0-34.0); Mean Corpuscular Hgb Conc 32.6 g/dL (32.0-36.0); Mean Corpuscular Volume 96.2 fL (80.0-100.0); Mean Platelet Volume 10.2 fL (9.4-12.4); Monocytes # (auto) 0.62 K/uL (0.11-0.59); Monocytes % (auto) 7.1 %; Neutrophils # (auto) 6.39 K/uL (1.40-6.50); Neutrophils % (auto) 73.2 %; Platelet Count 201 K/uL (130-400); RDW Coefficient of Variation 13.5 % (11.5-14.5); RDW Standard Deviation 47.8 fL (36.4-46.3); Red Blood Count 4.18 M/uL (4.70-6.10); White Blood Count 8.74 K/ul (4.8-10.8)
[2023-09-30 05:29] LABS: BUN Creatinine Ratio 18.3 (10-20); Calcium 8.7 mg/dl (8.6-10.3); Chol HDL Ratio 5.3 (0-5); Creatinine Clr Calc Pharmacy 98.9 ml/min; Est GFR (African American) 111.4 ml/min; Est GFR (Non-African American) 96.1 ml/min; Potassium 3.6 mmol/L (3.5-5.1)
[2023-09-30 05:38] LABS: INR 1.1 (0.9-1.1); Partial Thromboplastin Ratio 1.1; Partial Thromboplastin Time 31 Seconds (21-31); Prothrombin Time 11.8 Seconds (9.0-12.0)
[2023-09-30 07:07] LABS: Estimated Average Glucose 111 mg/dl; Hemoglobin A1C 5.5 % (4.5-5.6)
[2023-09-30] MEDS: LACTATED RINGER'S 1,000 ML IV SCH (08:19)
[2023-09-30] MEDS: cilostazoL 100 MG TAB PO SCH ×2 (08:20→20:25)
[2023-09-30] MEDS: ASPIRIN 325 MG ECTAB PO SCH (08:20)
[2023-09-30] MEDS: GABAPENTIN 100 MG CAP PO SCH ×3 (08:20→20:25)
[2023-09-30] MEDS: METOPROLOL SUCC 50MG EXT REL TAB PO SCH (08:20)
[2023-09-30] MEDS: ATORVASTATIN 40 MG TAB PO SCH (08:20)
--- NOTE | 2023-09-30 10:32 | Neurology Consultation ---
Date of Consultation September 30, 2023 Assessment & Plan (1) Right carotid artery occlusion: (2) Stroke-like symptoms: History of Present Illness Attending Physician: Chanda Montgomery MD History of Present Illness pt with now resolved rt vision change. pt had rt eye vision on/off blurring for a week. usually lasting 10-30 min. now doing well. mri brain showing small ischemic rt temporal ischemic stroke. CTA showing extensive rt ICA occlusion. pt with known PAD and followed by vascular surgery. admission HPI: Robert Stewart is a 58 year old male who presents to the ER with intermittent r ight eye vision loss. He reports no current problems with his vision, speech, hearing, extremity weakness or numbness. He notes the vision loss is his right eye rather than right sided vision. Occurs intermittently several times over the past week in his right eye where he reports having episodes of complete loss of vision interspersed with episodes of severe blurred vision which will last several hours and completely resolve. He was advised to come to the ER by his PCP. No prior history of strokes or [place]. Associated headache with vision loss - not temporal, occurs at the back right side, non pulsating, none currently. He has the majority of his care in [facility] and records not available on admission. He reports his only ongoing medical condition is peripheral artery disease with history of occlusion requiring bilateral extremity bypass with complications of left compartment syndrome requiring fasciotomy. Previously under Dr López but now sees various vascular surgeons at [facility]. He has a non-healing ulcer on his left 5th toe although he notes this has been improving. Prior toe amputations on this side was as a 3 year old after a mowing accident and not due to PAD. Allergies Allergy/AdvReac Type Severity Reaction Status Date / Time No Known Allergies Allergy Unverified 09/29/23 15:45 Home Medications Medication Instructions Recorded Confirmed Type acetaminophen 500 mg tablet 500 mg PO Q6H PRN pain/fever 09/29/23 09/29/23 History aspirin 325 mg tablet 650 mg PO DAILY 09/29/23 09/29/23 History atorvastatin 40 mg tablet 40 mg PO DAILY 09/29/23 09/29/23 History cilostazol 100 mg tablet 100 mg PO BID 09/29/23 09/29/23 History gabapentin 100 mg capsule 100 mg PO TID 09/29/23 09/29/23 History metoprolol succinate 50 mg 50 mg PO DAILY 09/29/23 09/29/23 History tablet,extended release 24 hr nitroglycerin 0.3 mg sublingual 0.3 mg sublingual UD PRN Chest Pain 09/29/23 09/29/23 History tablet Patient History Medical History Compartment syndrome of left lower extremity History of diverticulitis with abscess - August 2023 Peripheral artery disease b/l leg artery hooked up to aorta Surgical History History of arthroscopy of knee Social History Smoking Status: Current every day smoker Preferred Language: Indonesian Convention Manager Required: No Current Living Situation: Significant Other Other Information That Helps Us Care for You: No Feels Safe at Home: Yes Safety Concerns: Feels Safe At This Time Assistive Devices: Glasses and Hearing Aid - Bilateral Review of Systems Review of Systems: All systems reviewed & are unremarkable except as noted in Subjective Constitutional: as per Subjective / HPI Eyes: as per Subjective / HPI Ear, Nose, Mouth, Throat: as per Subjective / HPI Respiratory: as per Subjective / HPI Cardiovascular: as per Subjective / HPI Gastrointestinal: as per Subjective / HPI Musculoskeletal: as per Subjective / HPI Integumentary: as per Subjective / HPI Neurologic: as per Subjective / HPI Psychiatric: as per Subjective / HPI Endocrine: as per Subjective / HPI Hematologic / Lymphatic: as per Subjective / HPI Allergy / Immunological: as per Subjective / HPI Exam (Neuro) Physical Exam: HEENT: normocephalic Neuro: Mental: AOx4, fluent speech, normal comprehension, no apraxia, no L/R confusion, no neglect CN: PERRL, Full EOM, symmetric face, intact sensation t/o face, midline T/U/P, 5/5 SCM/traps. Motor: No abnormal movements, normal tone and bulk, 5/5 t/o bilaterally Sens: intact to touch b/l grossly Coord: intact FNT b/l DTR: 2+ sym b/l Impression: 58 yo male with now resolved transient subacute rt visual disturbance in setting of rt ICA occlusion and small rt temporal ischemic stroke. pt likely was having rt vision change from hypoperfusion on rt ophthalamic artery and cortex from his rt ICA lesion/occlusion. Recommendations: 2. antiplatelet therapy: * DAPT (dual antiplatelet therapy) continue as now. 3. Images: , TTE with bubble, 4. Permissive Hypertension not needed as his symptoms starte a week ago and subacute stroke at this point. 5. vascular surgery consulted. 6. Long-term SBP goal less than 130. 7. Plenty of hydration including IV flui d if possible (use isotonic solution) next 1-2 days. Avoid hypovolemia and hypotension. 8. Initiate DVT prevention therapy. 9. Avoid hypoglycemia, serum glucose goa l during hospitalization: 140-180. 10. Long-term HgA1c goal less than 7. 11. Start statin if not on it and no abs olute contraindication, long-term LDL goal less than 70. 12. Head of bed up 30 degrees if possibl e. 14. Telemetry monitoring. Consider fci cardiac monitoring, i.e. MCOT (mobile cardiac outpatient telemetry) or ICM (insertable playground monitor, e.g. 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 And if found to have atrial flutter or fibrillation, should consider anticoagulation therapy if no contraindication. 15. Fall precaution avoid hypotension. at this point, not much to offer from neurology. Will need input from vascular to decide if or when they want to intervene. continue DAPT as now. call again if new question. Chart reviewed I have spent more than 50% educating patient about potential diagnosis and neurological evaluation and coordinating care with patient's treatment team. Total time spent (including chart review and coordination of care): 80 min (this includes chart review). Results & Data Vital Signs (Past 12 Hours) Vital Signs Pulse Pulse Resp BP Pulse Ox O2 Del Method 09/30/23 08:30 60 18 114/74 98 Room Air 09/30/23 06:56 51 L 09/30/23 05:05 62 16 129/63 96 Room Air 09/29/23 23:55 57 L 09/29/23 23:37 57 L 16 118/66 96 Room Air 09/29/23 23:30 56 L 15 09/29/23 23:00 55 L 18 PG Care Time/CCT Total # of Minutes Spent Total Time Spent with Patient: Total time spent is greater than 50% in coordination of care (as documented) at patient's floor/unit and/or counseling patient: Coding Level of Care Code 42709 IN/OBS CONSULT LVL 5,80M Diagnoses Right carotid artery occlusion I65.21 Stroke-like symptoms R29.90
--- NOTE | 2023-09-30 13:58 | XCELERA ---
[id number]
--- NOTE | 2023-09-30 15:35 | Hospitalist Progress Note ---
Date of Service September 30, 2023 Assessment & Plan (1) Stroke-like symptoms: Plan: Likely right-sided vision change from hypoperfusion on right ophthalmic artery after his right ICA occlusion/lesion. Intermittent right sided vision loss. Currently without any symptoms. In setting of right sided complete and age indeterminant thrombosis of the internal carotid artery concerning for CVA/TIA. Brain MRI showed 5 mm acute right temporal lobe infarct Neurology consulted Recommend to continue aspirin and cilostazol that he is already on Right ICA complete occlusion noted on CT angio of the neck Awaiting vascular surgery input TTE bubble study shows intermittent atrial shunt Venous duplex ultrasound lower extremities ordered to rule out DVT patient A1c 5.5 LDL 111 Continue Lipitor that was started Smoking cessation emphasized (2) Peripheral artery disease: Plan: Continue aspirin and Pletal Under vascular surgery in [place] with prior bypass to both legs (3) Right carotid artery occlusion: Plan: Vascular surgery consulted Plan VTE Prophylaxis - deferred pending further workup Diet - heart healthy Disposition - observation to med/tele Admission and Anticipated Discharge Date Admission Date: September 29, 2023 Subjective Patient feels well. His vision is back to his baseline. No one-sided weakness or numbness. Denies chest pain or shortness of breath. Review of Systems Review of Systems: All systems reviewed & are unremarkable except as noted in Subjective Physical Exam Physical Exam: General: Awake, conversant Heart: S1, S2/regular rate and rhythm, no murmur rubs or gallops Lungs: Clear to auscultation bilaterally. Normal effort Abdomen: Soft/nontender/nondistended. No hepatosplenomegaly Extremities: No clubbing/cyanosis. No edema Behavior: Appropriate, cooperative Results & Data Results & Data Vital Signs (Past 12 Hours) Vital Signs Pulse Pulse Resp BP Pulse Ox O2 Del Method 09/30/23 15:06 57 L 09/30/23 12:00 60 18 117/69 96 Room Air 09/30/23 08:30 60 18 114/74 98 Room Air 09/30/23 06:56 51 L 09/30/23 05:05 62 16 129/63 96 Room Air Laboratory Results Abnormal lab results 09/29/23 09/29/23 09/30/23 Range/Units 12:45 20:53 03:58 RBC 4.18 L (4.70-6.10) M/uL Hgb 13.1 L (14.0-18.0) g/dl Hct 40.2 L (42.0-52.0) % RDW Std Deviation 47.8 H (36.4-46.3) fL Gillespie # (Auto) 0.62 H (0.11-0.59) K/uL ESR 46 H (0-20) mm/hr Chloride 109 H (98-107) mmol/L C-Reactive Protein 6.50 H (0-0.5) mg/dl Cholesterol/HDL Ratio 5.3 H (0-5) Ur Specific [place] 1.044 H (1.000-1.030) Urine Nitrite Positive A (Negative) Ur Leukocyte Esterase 2+ H (Negative) Urine WBC (Auto) >30 H (0-5) /hpf Diagnostic Findings Head CTA 09/29/23 13:10 HEAD CTA HISTORY: intermittent right eye vision loss. TECHNIQUE: Multiaxial CT images of the head were performed following the intravenous administration of contrast to evaluate the major cerebral vessels. 3D/MIP images were also obtained. Sagittal and coronal reformats were reviewed. A dose lowering technique was utilized adhering to the principles of ALARA. COMPARISON: Noncontrast head CT 09/29/2023. FINDINGS: The visualized left intracranial internal carotid artery is patent. The majority of the right intracranial internal carotid artery is occluded. There is faint reconstitution of flow within the supraclinoid and ophthalmic segments of the right ICA likely due to retrograde flow from the tribe of [place]. The right ophthalmic artery appears perfused. There is a hypoplastic right A1 segment. Otherwise, the bilateral ACAs and MCAs show no significant stenosis, occlusion, or aneurysm. The distal vertebral arteries and basilar artery are patent. Normal left CREW TEAM MEMBER. Hypoplastic proximal to mid right CREW TEAM MEMBER which demonstrates partial circulation. The distal right CREW TEAM MEMBER appears normal in caliber and is patent. The major dural venous sinuses appear patent. IMPRESSION: 1. The majority of the right intracranial internal carotid artery is occluded. There is faint reconstitution of flow within the supraclinoid and ophthalmic segments of the right ICA likely due to retrograde flow from the tribe of [place]. The right ophthalmic artery appears perfused. 2. Hypoplastic proximal to mid right CREW TEAM MEMBER which demonstrates partial circulation. The distal right CREW TEAM MEMBER appears normal in caliber and is patent. ACT 112: Negative or not required by law. Electronically signed by: Azam Saravia M.D. 09/29/2023 3:46 PM Neck CTA 09/29/23 13:10 CT ANGIOGRAM OF THE NECK CLINICAL HISTORY: Amaurosis fugax on the right COMPARISON STUDY: No priors. TECHNIQUE: Following the IV administration of 117 of Optiray 320, CT angiogram of the neck was performed from the aortic arch to the skull base. Images are reviewed in the axial, sagittal, and coronal planes. 3-D MIPS images are created and assessed. IV contrast was administered without complication. All measurements were calculated based on NASCET criteria. A dose lowering technique was utilized adhering to the principles of ALARA. FINDINGS: Thoracic aorta: There is atherosclerotic calcification of the thoracic aorta. Visualized portions of the thoracic aorta are normal in caliber. The aortic arch demonstrates standard 3-vessel anatomy. Right carotid arterial system: The right common carotid artery is widely patent. There is complete thrombosis of the right internal carotid artery. This extends to the bifurcation to the skull base. The external carotid artery is patent. Left carotid arterial system: The left common carotid artery is widely patent, as are the left internal and external carotid arteries. Calcified plaque is noted in the carotid bulb. Vertebral arteries: The vertebral arteries are widely patent bilaterally and codominant. Subclavian arteries: Widely patent bilaterally. Intracranial vasculature: There is complete thrombosis of the right internal carotid artery to skull base. The remaining visualized intracranial vessels at the skull base appear patent. Jugular veins: Widely patent bilaterally. Brain parenchyma: The visualized brain parenchyma the skull base is within normal limits. Lung apices: Emphysematous change is noted. The upper lobe lung parenchyma is otherwise clear as imaged. Soft tissues: The visualized pharyngeal soft tissues are normal in appearance noting angiographic phase technique. The oropharyngeal airway appears widely patent. The salivary and thyroid glands are normal in appearance. No cervical lymphadenopathy is seen. Skeletal structures: The visualized calvarium at the skull base appears intact. The imaged cervical spine is maintained noting multilevel spondylosis. Sinuses and mastoids: The visualized paranasal sinuses are clear. The mastoid air cells are well pneumatized. IMPRESSION: 1. There is complete and age indeterminant thrombosis of the right internal carotid artery. This extends from the bifurcation to the skull base. 2. The left internal carotid artery and the bilateral vertebral arteries are patent. 3. Emphysema. 4. Additional findings as above. ACT 112: Negative or not required by law. Electronically signed by: Adam Gasca M.D. 09/29/2023 3:28 PM Brain MRI 09/29/23 16:48 MRI OF THE BRAIN WITHOUT CONTRAST CLINICAL HISTORY: right eye intermittent vision loss COMPARISON STUDY: Head CT and CTA of the head performed earlier today. TECHNIQUE: Utilizing a 1.5 Francsica magnet and dedicated coil, multiplanar, multiecho imaging of the brain was performed without IV contrast. FINDINGS: There is a 5 mm focus of restricted diffusion within the right temporal lobe, deep to the insular cortex. No additional foci of acute infarction are identified. A 6 mm old infarct within the right internal capsule corresponds to the finding on head CT performed earlier today. There is no mass effect. There is no acute hemorrhage. Ventricular system is unremarkable. Basal cisterns are patent. No intracranial masses are identified on this unenhanced exam. Scattered white matter T2 hyperintense foci suggest mild small vessel disease. Loss of the flow-void for the majority of the right internal carotid artery is partially imaged on this exam. There is reconstitution within the supraclinoid segment, as shown on CTA. Intraluminal material is T1 and T2 hyperintense. IMPRESSION: 1. Small 5 mm acute infarct within the right temporal lobe, as described above. No acute hemorrhage. No mass effect. 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 2. Occlusion of the majority of the right internal carotid artery with reconstitution, better depicted on CTA performed earlier today. This is age indeterminate however the intraluminal signal characteristics raise the possibility of acute to subacute occlusion. ACT 112: Negative or not required by law. Electronically signed by: Bharathi Montana M.D. 09/29/2023 6:43 PM PG Care Time/CCT Total # of Minutes Spent Total Time Spent with Patient: Total time spent is greater than 50% in coordination of care (as documented) at patient's floor/unit and/or counseling patient: Coding Level of Care Code 49353 SUB INP/OBS CARE 2/35MIN Diagnoses Stroke-like symptoms R29.90 Peripheral artery disease I73.9 Right carotid artery occlusion I65.21
--- NOTE | 2023-09-30 19:14 | Ultrasound Report ---
ULTRASOUND BILATERAL LOWER EXTREMITY VENOUS CLINICAL HISTORY: Left foot pain. COMPARISON STUDY: No priors TECHNIQUE: Real-time, grayscale, and color Doppler sonography of the deep veins of the right and left lower extremity was performed from the inguinal crease to the calf. Compression and augmentation wer e utilized. FINDINGS: There is no sonographic evidence of deep venous thrombosis identified in the right or left lower extremity. The common femoral, superficial femoral, and popliteal veins are patent and normally compressible bilaterally. The greater saphenous vein and the profunda femoris vein at the junction w ith the common femoral vein are clear in both legs. The visualized calf veins are patent bilaterally. IMPRESSION: There is no sonographic evidence of deep venous thrombosis identified in the right or lef t lower extremity. ACT 112: Negative or not required by law. Electronically signed by: Adam Gasca M.D. 09/30/2023 7:13 PM
[2023-10-01 07:20] LABS: Basophils # (auto) 0.04 K/uL (0.00-0.20); Basophils % (auto) 0.6 %; Eosinophils # (auto) 0.18 K/uL (0.00-0.50); Eosinophils % (auto) 2.5 %; Hematocrit (blood only) 40.4 % (42.0-52.0); Hemoglobin 13.1 g/dl (14.0-18.0); Immature Granulocytes # (auto) 0.03 K/uL (0.01-0.20); Immature Granulocytes % (auto) 0.4 %; Lymphocytes # (auto) 0.91 K/uL (1.20-3.40); Lymphocytes % (auto) 12.8 %; Mean Corpuscular Hemoglobin 31.1 pg (25.0-34.0); Mean Corpuscular Hgb Conc 32.4 g/dL (32.0-36.0); Mean Platelet Volume 9.9 fL (9.4-12.4); Monocytes # (auto) 0.47 K/uL (0.11-0.59); Monocytes % (auto) 6.6 %; Neutrophils # (auto) 5.47 K/uL (1.40-6.50); Neutrophils % (auto) 77.1 %; Platelet Count 193 K/uL (130-400); RDW Coefficient of Variation 13.2 % (11.5-14.5); RDW Standard Deviation 46.5 fL (36.4-46.3); Red Blood Count 4.21 M/uL (4.70-6.10)
[2023-10-01 08:23] LABS: BUN Creatinine Ratio 17.8 (10-20); Calcium 8.7 mg/dl (8.6-10.3); Creatinine Clr Calc Pharmacy 80.3 ml/min; Est GFR (African American) 93.3 ml/min; Est GFR (Non-African American) 80.5 ml/min
[2023-10-01] MEDS: ASPIRIN 325 MG ECTAB PO SCH (08:48)
[2023-10-01] MEDS: METOPROLOL SUCC 50MG EXT REL TAB PO SCH (08:48)
[2023-10-01] MEDS: ATORVASTATIN 40 MG TAB PO SCH (08:48)
[2023-10-01] MEDS: GABAPENTIN 100 MG CAP PO SCH (08:49)
[2023-10-01] MEDS: cilostazoL 100 MG TAB PO SCH (08:49)
--- NOTE | 2023-10-01 10:06 | Consultation ---
Date of Consultation October 01, 2023 Assessment & Plan (1) Right carotid artery occlusion: Pt with R ICA occlusion, likely occurred simultaneously with his last CVA/TIA sx. No intervention recommended due to complete occlusion. Recommended to f/u with his regular esl teacher at [facility] for a carotid US in 6 months to reeval his L side. Pt will need these records and CTA neck transferred to his vascular providers at [facility] for continuity of care. (2) Peripheral artery disease: Pt with hx of aortoiliac occlusive disease and is s/p aortobifemoral bypass 2 yr ago per pt. He has been following with his vascular surgeons at [facility] for this. LLE demonstrates no sign of ischemia and pt is asymptomatic aside from a small atypical L 5th toe wound. No indications for urgent intervention. Would have him f/u with his vascular providers at [facility]. Pt expresses understanding and agreement. please call if needed. History of Present Illness Reason for Consultation: R ICA occlusion Attending Physician: Chanda Montgomery MD History of Present Illness 58 yo m with hx of aortoiliac occlusive disease, HTN, CAD, neuropathy, hyperlipidemia, PAD, admitted with R hemispheric CVA and R eye amaurosis, seen in consultation today for R ICA occlusion noted on CTA neck. Pt states he wsa having R eye transient vision loss for about 1 week DIALYSIS REGISTERED NURSE. It would last about 5 minutes. No other associated sx. Denies WRIGHT, unilateral weakness, facial droop, speech difficulty, confusion. None since arrival at [facility]. States he has a small but painful scabbed area to his L 5th toe for which he has been following with his vascular surgeons at [facility] [place]. Was supposed to have an appt there yesterday. Denies chest pain, cough, recent illness, fever, SOB, abd pain, N/V, rest pain, claudication,, discoloration of toes, other complaints. CTA neck demonstrates R ICA occlusion. Allergies Allergy/AdvReac Type Severity Reaction Status Date / Time No Known Allergies Allergy Unverified 09/29/23 15:45 Home Medications Medication Instructions Recorded Confirmed Type acetaminophen 500 mg tablet 500 mg PO Q6H PRN pain/fever 09/29/23 09/29/23 History aspirin 325 mg tablet 650 mg PO DAILY 09/29/23 09/29/23 History atorvastatin 40 mg tablet 40 mg PO DAILY 09/29/23 09/29/23 History cilostazol 100 mg tablet 100 mg PO BID 09/29/23 09/29/23 History gabapentin 100 mg capsule 100 mg PO TID 09/29/23 09/29/23 History metoprolol succinate 50 mg 50 mg PO DAILY 09/29/23 09/29/23 History tablet,extended release 24 hr nitroglycerin 0.3 mg sublingual 0.3 mg sublingual UD PRN Chest Pain 09/29/23 09/29/23 History tablet Patient History Medical History Compartment syndrome of left lower extremity History of diverticulitis with abscess - August 2023 Peripheral artery disease b/l leg artery hooked up to aorta Surgical History History of arthroscopy of knee Social History Smoking Status: Current every day smoker Preferred Language: Faroese Communication Ability: Effective 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 Current Living Situation: Significant Other Feels Safe at Home: Yes Assistive Devices: None Review of Systems Review of Systems: All systems reviewed & are unremarkable except as noted in HPI & below Physical Exam Constitutional: WD/WN, vitals as above cooperative; not in distress ENMT: Ears: + hearing impairment Neck: trachea midline Respiratory: normal respiratory effort, lungs clear to auscultation Auscultation: + diminished lung sounds Cardiovascular: Rate/Rhythm: regular rate and regular rhythm Vessels: femoral pulses present, posterior tibial pulses present (RLE +2, LLE dopplerable) and dorsalis pedis pulses present (RLE +2, LLE dopplerable); + abnormal peripheral pulses Extremities: normal capillary refill; no edema Gastrointestinal (Abdomen): Inspection/Auscultation: abdomen normal to inspection and normal bowel sounds Percussion/Palpation: abdomen soft; abdomen nontender Musculoskeletal: no cyanosis or clubbing, extremities motor strength 5/5 Skin: + wound (tiny scab to L 5th toe, no necr osis, dry, no erythema) Neurologic: moves all extremities and awake; no focal motor deficits and not confused Psychiatric: A+Ox3, euthymic affect Results & Data Vital Signs (Past 12 Hours) Vital Signs Temp Pulse Pulse Resp BP Pulse Ox O2 Del Method 10/01/23 07:23 36.8 C 55 L 16 116/70 96 Room Air 10/01/23 05:38 55 L 10/01/23 04:11 36.8 C 63 18 129/67 97 Room Air 10/01/23 00:05 36.8 C 56 L 20 139/67 96 Room Air 09/30/23 21:57 58 L
[2023-10-01] MEDS ORDERED: STROKE PATIENT DISCHARGE STA (10:53)
--- NOTE | 2023-10-01 10:54 | Discharge Summary ---
Date of Service October 01, 2023 Admission HPI Per Admitting Provider Robert Stewart is a 58 year old male who presents to the ER with intermittent right eye vision loss. He reports no current problems with his vision, speech, hearing, extremity weakness or numbness. He notes the vision loss is his right eye rather than right sided vision. Occurs intermittently several times over the past week in his right eye where he reports having episodes of complete loss of vision interspersed with episodes of severe blurred vision which will last several hours and completely resolve. He was advised to come to the ER by his PCP. No prior history of strokes or NM. Associated headache with vision loss - not temporal, occurs at the back right side, non pulsating, none currently. He has the majority of his care in [facility] and records not available on admission. He reports his only ongoing medical condition is peripheral artery disease with history of occlusion requiring bilateral extremity bypass with complications of left compartment syndrome requiring fasciotomy. Previously under Dr López but now sees various vascular surgeons at [facility]. He has a non-healing ulcer on his left 5th toe although he notes this has been improving. Prior toe amputations on this side was as a 3 year old after a mowing accident and not due to PAD. Admission Exam Per Admitting Provider Constitutional: WD/WN, vitals as above Eyes: normal visual porter by confrontation, PERRL and EOM intact bilaterally; no conjunctival abnormality ENMT: external ear and nose normal, oropharynx normal Respiratory: normal respiratory effort, lungs clear to auscultation Cardiovascular: RRR, no murmur, no edema Vessels: posterior tibial pulses present and dorsalis pedis pulses present Gastrointestinal (Abdomen): normal bowel sounds, soft, nontender, no hepatosplenomegaly Skin: amputation on 4th-5th toes left foot with chronic appearing ulcer on 5th tip with no surrounding cellutliuis Neurologic: moves all extremities and awake; no focal motor deficits and not confused Speech / Cognition: normal speech Motor/Sensory: no tremor, normal movement, no pronator drift and no sensory deficit Cranial Nerves: sense of smell intact, PERRL, normal accommodation, EOM intact bilaterally, normal facial strength, tongue midline, able to rotate head bilaterally, able to elevate shoulders bilaterally, no nystagmus and symmetric palate elevation Coordination: normal [id number] test Psychiatric: A+Ox3, euthymic affect Principal Diagnosis Acute right temporal lobe infarct (stroke) Peripheral vascular disease with right internal carotid artery complete stenosis Nicotine dependence Discharge Exam General: Awake, conversant Heart: S1, S2/regular rate and rhythm, no murmur rubs or gallops Lungs: Clear to auscultation bilaterally. Normal effort Abdomen: Soft/nontender/nondistended. No hepatosplenomegaly Extremities: No clubbing/cyanosis. No edema Behavior: Appropriate, cooperative Discharge Data Allergies Allergy/AdvReac Type Severity Reaction Status Date / Time No Known Allergies Allergy Unverified 09/29/23 15:45 Consultations 09/29/23 16:29 ED Decision to Admit Stat 09/29/23 21:36 Consult Neurology Routine Consult Vascular Surgery Routine Ordered Studies 09/29/23 13:10 CT angio head w con Stat CT angio neck with con Stat CT head/brain wo con Stat 09/29/23 16:48 MRI Brain [MR brain wo con] Urgent 09/30/23 15:00 US venous duplex leg [US venous doppler LE BI] Routine Hospital Course (1) Stroke-like symptoms: Likely right-sided vision change from hypoperfusion on right ophthalmic artery after his right ICA occlusion/lesion. Intermittent right sided vision loss. Currently without any symptoms. In setting of right sided complete and age indeterminant thrombosis of the internal carotid artery concerning for CVA/TIA. Brain MRI showed 5 mm acute right temporal lobe infarct Neurology recommend to continue aspirin and cilostazol that he is already on Right ICA complete occlusion noted on CT angio of the neck Vascular surgery recommended no acute intervention as this is complete occlusion and recommended that he follow with his [facility] vascular surgeon in 6 months TTE bubble study shows inter atrial shunt Venous duplex ultrasound lower extremities ruled out DVT A1c 5.5 LDL 111 Continue Lipitor that was started Smoking cessation emphasized. Patient seems motivated to quit (2) Peripheral artery disease: Continue aspirin and Pletal Under vascular surgery in [place] with prior bypass to both legs (3) Right carotid artery occlusion: Vascular surgery recommended no acute intervention at this time but for the patient to follow-up with his [facility] vascular surgeon in 6 months Plan Discharge to home Total Time Total Time Spent Total Time Spent (In Minutes): 35 Discharge Plan Discharge Items Patient Disposition: Home - Self-Care Reason For Visit: RIGHT INTERMITTENT VISION LOSS Discharge Diagnosis: Acute right temporal lobe infarct (stroke) Peripheral vascular disease with right internal carotid artery complete stenosis Nicotine dependence Activity: Resume your previous activity Non-emergency contact: Primary Care Provider Call non-emergency contact if: you have any medication questions and your symptoms worsen Follow-up/Referrals: Charity Leal CRNP [Primary Care Provider] - (PLEASE CALL YOUR PRIMARY CARE PROVIDER TO SCHEDULE A FOLLOW-UP DISCHARGE HOSPITAL APPOINTMENT WITHIN 7-10 DAYS) Diet: Heart Healthy Addtl Attending Provider Instructions: Advised to follow-up with PCP in 1 week Advised to follow-up with vascular surgery in 6 months Emphasized importance of smoking cessation Pending Studies at Discharge: No Stand-Alone Forms: My [facility] [employer], Work/School Release, Smoking Cessation, Medications to Prevent Stroke Medications and DC Order Prescriptions: Continued atorvastatin 40 mg tablet 40 mg PO DAILY cilostazol 100 mg tablet 100 mg PO BID nitroglycerin 0.3 mg tablet, sublingual 0.3 mg sublingual UD PRN (Reason: Chest Pain) aspirin 325 mg Tablet 650 mg PO DAILY metoprolol succinate 50 mg tablet extended release 24 hr 50 mg PO DAILY acetaminophen 500 mg Tablet 500 mg PO Q6H PRN (Reason: pain/fever) gabapentin 100 mg capsule 100 mg PO TID Discharge Orders: Discharge Order (Routine); Ordered 10/01/23 Ordered By: Chanda Montgomery Admission Data Admit Date/Time: 09/29/23 17:40 Attending Provider: Chanda Montgomery Admit Provider: Benji Modi Primary Care Provider: Charity Leal Other Providers: Benji Modi; Berlin Marion; Laron Kaiser Other Interventions: Discharge Summary Assessment (RN) Last Done: 10/01/23 11:18 Coding Level of Care Code 84482 INP/OBS DISCH >30 MIN Diagnoses Stroke-like symptoms R29.90 Peripheral artery disease I73.9 Right carotid artery occlusion I65.21
--- NOTE | 2023-10-01 11:09 | Pharmacy Report ---
- Date of Service October 01, 2023 - Pharmacy CVA/TIA Medication Review Medications to Prevent Stroke handout has been added to the patients discharge packet. Antiplatelet(s) * aspirin 650 mg daily / Pletal 100 mg bid Cholesterol * High intensity statin: atorvastatin 40 mg daily DVT Prophylaxis * Pharmacologic and mechanical DVT prophylaxis deferred due to patient mobile Therapeutic Anticoagulation * No history of Afib/Aflutter noted Type 2 Diabetes * Patient does not have T2DM
== END 2023-10-01 11:37 | disposition home or self-care (01) ==
LOC: EDINP 12:19 → ED 12:19 → SUATTDRO 17:40 → 2N 20:02